=== PATIENT | female | born 2000 | race Caucasian/White ===

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

== ENCOUNTER → 2023-08-22 | Outpatient (CLI) | payer OTHER ==
[2023-08-22 23:27] LABS: C Reactive Protein <0.30 mg/dL (0.00-0.80); Rheumatoid Factor, Qnt <15 IU/mL (0-15)
[2023-08-22 23:49] LABS: Hepatitis A Antibody IgM Nonreactive; Hepatitis B Core IgM Nonreactive; Hepatitis B Surface Antigen Nonreactive; Hepatitis C IgG Antibody Nonreactive
[2023-08-24 04:59] LABS: Toxoplasma Antibody (IgG) 3.3 IU/mL (<7.2)
[2023-08-24 09:28] LABS: HLA B27 NEGATIVE
[2023-08-24 10:22] LABS: Angiotensin-1 Converting Enz. 30 U/L (8-52)
== END | disposition home or self-care (01) ==
LOC: LABWHC1 10:07
DX: H20.022 Recurrent acute iridocyclitis, left eye (principal)
CPT/HCPCS: 36415; 80074; 82164; 85025; 85549; 85652; 86038; 86140; 86255; 86431; 86618; 86777; 86780; 86812